=== PATIENT | female | born 1945 | race African-American/Black ===

== ENCOUNTER 2024-12-05 12:45 | Outpatient (AMB) | payer OTHER, SELFPAY ==
--- NOTE | 2024-12-05 12:51 | A.OFFVIS_ITS ---
Intake Visit Reasons: 3 Months Accompanied by: Spouse Allergies fluoxetine (From [employer]) Allergy (Unknown, Verified 12/05/24 12:58) Unknown Medication List - Last Reconciled 12/05/24 by Shruthi Vivar CNP amlodipine 5 mg PO DAILY bupropion HCl (smoking deter) 150 mg PO BID carbidopa-levodopa 25-100 mg 1 tab PO .five times a day lisinopril 10 mg PO DAILY losartan 25 mg PO DAILY lovastatin 20 mg PO BEDTIME HPI Comments Details: She was doing okay. She was taking carbidopa-levodopa 25-100mg five times a day at 9am, 12pm, 3pm, 6pm, and 9pm. Tremor to R hand was a bit better, but still there. It was worse if she was nervous. Occasionally, she has to hold cup steady with two hands, but not as often. No difficulty swallowing. Moving a bit slower, some trouble turning in bed. Occasional lightheadedness. Using cane when outside home, no falls. Sleep was up and down, wakes a few times during the night to use the bathroom. Mood was okay. Hx of intermittent tremors in hands at rest, right slightly worse than left, since spring 2020. Does not interfere with ability to eat, but hard for her to write. Also feels lightheaded, dizzy at times, and feels unsteady, so that she feels more secure with cane. Voice is soft and tends to drool a little on the pillow. She is a little bit more stooped. Trouble turning in bed, takes longer to get out of bed and out of car. Does not shuffle or fall. No hx of head trauma. Does not feel depressed. No nightmares. No memory or cognitive problems. [facility] Medical History (Updated 12/05/24 @ 12:54 by Shruthi Vivar CNP) Hypertension Hyperlipemia Parkinsons disease Review of Systems Const Denies chills, Denies daytime sleepiness, Denies difficulty sleeping, Denies fatigue, Denies fever(s), Denies frequent falls, Denies headache(s), Denies increased appetite, Denies poor appetite, Denies snoring, Denies weakness, Denies weight gain and Denies weight loss Eyes Denies loss of vision ENT Denies vertigo, Reports dizziness, Denies headache(s) and Denies neck pain Card Denies chest pain at rest, Denies chest pain with activity, Denies syncope, Denies leg edema, Denies palpitations, Denies dyspnea and Denies dyspnea on exertion Resp Denies cough, Denies dyspnea, Denies dyspnea on exertion and Denies snoring GI Denies abdominal pain, Denies constipation, Denies heartburn, Denies diarrhea and Denies nausea Denies urinary frequency, Denies urinary incontinence and Denies urinary urgency Musc Denies abnormal gait, Denies back pain, Denies myalgias, Denies arthralgias, Denies neck pain, Denies numbness and Denies tingling Neuro Denies abnormal gait, Denies vertigo, Reports dizziness, Denies syncope, Denies frequent falls, Denies headache(s), Denies lack of coordination, Denies loss of vision, Denies memory loss, Denies numbness, Denies Other visual disturbances, Denies restless legs, Denies seizure-like activity, Denies tingling, Denies paresthesias, Reports tremor(s) and Denies weakness Psych Denies anxiety, Denies depression, Denies auditory hallucinations, Denies memory loss and Denies visual hallucinations Endo Denies fatigue and Denies palpitations Physical Exam Const Other: General Appearance:? normal, in no acute distress. Heart:? S1, S2 normal, no murmurs. Lungs:? clear anteriorly and posteriorly. Musculoskeletal:? normal. Extremities:? no edema. Psych:? alert, oriented, cognitive function intact, cooperative with exam. Neuro Other: Abnormal Neurological Findings:?Mild generalized bradykinesia with mask facies, stooped posture. Reduced arm swing on walking with cane. Minimal intermittent resting tremors of 4-6 Hz in both upper extremities R > L. Mildly increased tone in both upper extremities with cogwheeling. Mental Status: alert and oriented X 3. Normal attention, orientation, memory, and affect. Cranial Nerves: Pupils are equal, round, and reactive to light. External ocular muscles are intact. Visual woo are full, no ptosis. Face is symmetrical, no facial weakness or droop. Facial sensations are normal. Tongue protrudes in midline. Palate elevates symmetrically. Shoulder shrugging is normal Motor Examination: Normal muscle tone, bulk and strength. No atrophy or fasciculations. No drift of the extended upper extremities. DTR 2+. Plantars are flexor. Sensory Exam: Normal light touch, temperature, pinprick, vibration, and joint- position sensations. Rhomberg sign is absent. Coordination: No ataxia. No titubation. Gait Exam: Stooped posture, reduced arm swing with cane. Cerebellar Signs: [id number] with tremor. Extrapyramidal System: As above. Speech: Normal. Assessment & Plan Assessment & Plan (1) Parkinsons disease: Code(s): G20.A1 - Parkinson's disease without dyskinesia, without mention of fluctuations Category: Medical Qualifiers: Dyskinesia presence: without dyskinesia Fluctuating manifestations: without fluctuating manifestations Qualified Code(s): G20.A1 - Parkinson's disease without dyskinesia, without mention of fluctuations Plan: Continue carbidopa-levodopa 25-100mg 1 tablet five times a day. Coding Level of Care Code Est Pt Level 4 (52315) Diagnoses Parkinson's disease without dyskinesia or fluctuating manifestations G20.A1 Dyskinesia presence: without dyskinesia Fluctuating manifestations: without fluctuating manifestations
--- OUTSIDE RECORDS SUMMARY | 2024-12-05 13:57 | XMS_ITS ---
[facility] Name [facility] Unknown History of Medication Use Medication Directions Dispensed Refills Start Date End Date Stat us polyethylene glycol (PEG) 17 gram/dose oral powder Take 17 g by mouth daily. active Allergies Allergen Reaction Severity Comment Documented Date Source Statu s FLUOXETINE HCL Other Reactio n(s): OTHER,Dosnt remember 03/25/2005 [facility] active Problems Problem Status Onset Date Problem Type Date of Resolution Source Parkinson disease active 2020-11-12 ProblemAct [facility] Hypertension active 2008-03-06 ProblemAct [facility] Osteopenia active 2020-06-19 ProblemAct [facility] Osteoarthrosis, hand active 2005-03-25 ProblemAct [facility] Bronchiectasis without complication active 2019-01-24 ProblemAct [facility] Depression active 2008-10-13 ProblemAct [facility] Palpitations active 2020-09-17 ProblemAct [facility] Periumbilical abdominal pain active 2018-11-14 ProblemAct [facility] Sarcoidosis of lung active 2005-03-25 ProblemAct [facility] Lightheadedness active 2020-09-17 [address] [facility] Hyperlipidemia active 2005-04-02 ProblemAct [facility] Rheumatoid factor positive active 2022-08-17 ProblemAct [facility] Constipation active 2018-11-14 ProblemAct [facility] Carotid artery stenosis active 2014-12-29 ProblemAct [facility] Chronic superficial gastritis without bleeding active 2018-11-14 ProblemAct [facility] Other specified nutritional anemias active 2005-03-25 ProblemAct [facility] Encounter for screening mammogram for breast cancer active EncounterDiagnosisAct C [facility] Weight loss active 2018-11-14 ProblemAct [facility] Immunizations Vaccine Date Source Lot Number Status Influenza Quadravalent, 0.5m l (Fluzone High-dose) 65yo and older 12/27/2023 [facility] comple shannen Influenza trivalent, 0.5mL ( Fluad) 65yo and older 12/27/2023 [facility] [id number] completed Influenza trivalent, 0.5mL ( Fluzone High-dose) 65yo and older 02/17/2023 [facility] [id number] comple shannen Influenza trivalent, 0.5mL ( Fluzone High-dose) 65yo and older 02/02/2022 [facility] [id number] comple shannen Pfizer (ages 12 & older) Biv alent, COVID-19 01/22/2022 [facility] [id number] completed Influenza trivalent, 0.5mL ( Fluzone High-dose) 65yo and older 02/17/2021 [facility] [id number] comple shannen Td Tetanus diptheria (Tdvax) 7yo and older 07/16/2018 [facility] [id number] completed Influenza Quadravalent, MDCK , 0.5ml, preservative free (Flucelvax) 6mo and older 03/05/2018 [facility] [id number] completed Influenza Quadravalent, MDCK , 0.5ml, with preservative (Flucelvax) 6mo and older 01/15/2017 [facility] [id number] completed Influenza trivalent, with pr eservative (Fluzone; Afluria) 6mo and older 05/09/2016 [facility] [id number] completed Influenza trivalent, with pr eservative (Fluzone; Afluria) 6mo and older 03/11/2015 [facility] [id number] completed Pneumococcal conjugate 13 va lent (Prevnar 13, PCV13) 2mo and older 10/30/2014 [facility] [id number] complet ed Influenza trivalent, with pr eservative (Fluzone; Afluria) 6mo and older 01/29/2013 [facility] [id number] completed Influenza trivalent, with pr eservative (Fluzone; Afluria) 6mo and older 02/14/2012 [facility] [id number] completed Influenza trivalent, with pr eservative (Fluzone; Afluria) 6mo and older 02/08/2011 [id number] completed Influenza trivalent, with pr eservative (Fluzone; Afluria) 6mo and older 02/05/2010 [facility] [id number] completed Influenza trivalent, with pr eservative (Fluzone; Afluria) 6mo and older 04/02/2009 [facility] [id number] completed Influenza trivalent, with pr eservative (Fluzone; Afluria) 6mo and older 01/24/2008 [facility] [id number] completed Pneumococcal polysaccharide 23 valent (Pneumovax 23) 2yo and older 01/24/2008 [facility] [id number] com pleted Tdap Tetanus diptheria acell ular pertussis (Boostrix; Adacel) 7yo and older 06/04/2007 [facility] [id number] completed Hepatitis B ([id number] , Recombivax HB-Adult) 19yo and older 07/09/2003 [facility] ed Hepatitis B ([id number]-Z-[id number] , Recombivax HB-Adult) 19yo and older 01/22/2003 [facility] complet ed Td Tetanus diptheria (Tdvax) 7yo and older 04/03/1996 [facility] completed Care Team Organization Name Specialty Phone Email Start Date End Da te [facility] 08/08/2022 [facility] Termed, [facility] 02/08/202211/01
--- OUTSIDE RECORDS SUMMARY | 2024-12-05 13:57 | XMS_ITS | Clinical Summary ---
Author Organization [facility] [address] [place] [address] [place] [phone] Phone Care Team Providers Care Rv Service Technician Name Role Phone Kenny Mcqueen Primary Care Provider [phone] Allergies Active Allergy Reactions Criticality Noted Date Comments Fluoxetine Hcl 03/25/2005 Other Reaction(s): OTHER Dosnt remember Medications polyethylene glycol (PEG) 17 gram/dose oral powder Take 17 g by mouth daily. Active carbidopa-levod opa (SINEMET) 25-100 mg per tablet Take 1 Tablet by mouth 4 times daily. 1 Active albuterol HFA (PROAIR HFA ; PROVENTIL HFA ; VENTOLIN HFA) 90 mcg/actuation inhaler Inhale 2 puffs by mouth every 4 (four) hours if needed for wheezing or shortness of breath. 4 Active buPROPion SR (WELLBUTRIN SR) 150 mg 12 hr tablet Take 1 tablet (150 mg total) by mouth 1 (one) time each day. 4 Active lovastatin (MEVACOR) 20 mg tablet TAKE 1 TABLET BY MOUTH EVERYDAY AT BEDTIME 90 tablet 1 5 Active losartan (Cozaar) 50 mg tablet Take 1 tablet (50 mg total) by mouth 1 (one) time each day. 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 Monitor did not reveal any concerning heart rhythm problems. She denies any ongong issues with symptomatic palpitations. No changes today. Continue to monitor. Lightheadedness 09/17/2020 Osteopenia 06/19/2020 Bronchiectasis without compl ication ([facility] V24, [facility] V28) 01/24/2019 Weight loss 11/14/2018 Overview (01/11/2024): Last Assessment & Plan: Patient reports that she has had quite a bit of weight loss recently. We discussed ways for her to increase her daily caloric intake. I have encouraged her to add supplements such as Ensure and to increase protein with her meals. I have also encouraged her to reach out to her primary care provider to further discuss her weight loss. Periumbilical abdominal pain 11/14/2018 Constipation 11/14/2018 Chronic superficial gastritis without bleeding 0 11/14/2018 Carotid artery stenosis 12/29/2014 Overview (01/11/2024): Bilateral carotid arterial system atherosclerosis, 50-69% of stenosis in the right internal carotid artery based on velocity measurements. Under 50% stenosis in the left internal carotid artery. Last Assessment & Plan: Patient had a carotid duplex completed 01/2021 which showed less than 50% stenosis in the bilateral internal carotid arteries. She continues on statin. Depression 10/13/2008 Hypertension 03/06/2008 Overview (01/11/2024): Last Assessment & Plan: Patient's blood pressure is well controlled and she is not orthostatic. We once again discussed using caution when arising from a seated position and maintaining good hydration. Patient is not on any antihypertensive medications. Assessment & Plan (09/30/2024 5:04 PM EDT): Blood pressure on my recheck was 144/74. She denies any side effects with losartan 25 mg daily. Will increase losartan to 50 mg daily. Patient plans on doing blood work today. Since stopping the amlodipine, there has been some improvement with the ankle swelling. Continue elevating legs. Will stay off of amlodipine for now. Chest x- ray was unremarkable. Hyperlipidemia 04/02/2005 Overview (01/11/2024): Last Assessment & Plan: Well controlled on present medical therapies. No changes today. Sarcoidosis of lung (CMS/HCC V24) 03/25/2005 Other specified nutritional anemias 03/25/2005 Overview (01/11/2024): IMO update Osteoarthrosis, hand 03/25/2005 Overview (01/11/2024): IMO update Encounters Date Type Department Care Team Description 11/22/2024 12:15 PM EDT - 11/22/2024 11:59 PM EDT Hospital Encounter Radiology Department - [address] [phone] Bilateral carotid artery stenosis Discharge Disposition: Home or Self Care 11/01/2024 1:15 PM EDT Office Visit Adult Medicine [address] [phone] Shonda Mcconnell PA Primary hypertension (Primary Dx); Stage 3a chronic kidney disease (CMS/HCC V24, CMS/HCC V28); Pure hypercholesterolemia; Anemia, unspecified type; Medical orders for life-sustaining treatment (MOLST) form in chart 09/30/2024 2:30 PM EDT Office Visit [address] [phone] Shonda Mcconnell PA Encounter for subsequent annual wellness visit (AWV) in Medicare patient (Primary Dx); Primary hypertension; Elevated blood pressure reading from Last 3 Months Immunizations Name Administration Dates Next Due Hepatitis B (Vndivad-O-Wdldb , Recombivax HB-Adult) 19yo and older 07/09/2003,01/22/2003 Influenza Quadravalent, 0.5m l (Fluzone High-dose) 65yo and older 12/27/2023 Influenza Quadravalent, MDCK , 0.5ml, preservative free (Flucelvax) 6mo and older 03/05/2018 Influenza Quadravalent, MDCK , 0.5ml, with preservative (Flucelvax) 6mo and older 01/15/2017 Influenza Quadravalent, la mbinant, 0.5ml, preservative free (Flublok) 18yo and older 01/01/2020 Influenza trivalent, 0.5mL ( Fluad) 65yo and older 12/27/2023,01/08/2019 Influenza trivalent, 0.5mL ( Fluzone High-dose) 65yo and older 02/17/2023,02/02/2022,02/17/2021 Influenza trivalent, with pr eservative (Fluzone; Afluria) 6mo and older 05/09/2016,03/11/2015,01/29/2013,02/13,02/08/2011,02/05/2010,04/02/2009 ,01/24/2008 Pfizer (ages 12 & older) Biv alent, COVID-19 01/22/2022 Pneumococcal conjugate 13 va lent (Prevnar 13, PCV13) 2mo and older 10/30/2014 Pneumococcal polysaccharide 23 valent (Pneumovax 23) 2yo and older 01/24/2008 Td Tetanus diptheria (Tdvax) 7yo and older 07/16/2018,04/03/1996 Tdap Tetanus diptheria acell ular pertussis (Boostrix; Adacel) 7yo and older 06/04/2007 Surgical History Surgery Date Site/Laterality Comments OTHER SURGICAL HISTORY 02/10/2005 PROCEDURE: PAP SMEAR (2 SLIDES) OTHER SURGICAL HISTORY 08/07/2004 PROCEDURE: MAMMOGRAM TUBAL LIGATION PROCEDURE: HISTORICAL TUBAL LIGATION HYSTERECTOMY 2007 PROCEDURE: HISTORICAL TOTAL HYSTERECTOMY WITH BSO; COMMENT: also had gi proceedure colon partial resect with reanasotomisis ESOPHAGOGASTRODUODENOSCOPY 06/12/2008 PROCEDURE: IL ESOPHAGOGASTRODUODENOSCOPY TRANSORAL DIAGNOSTIC; COMMENT: normal OTHER SURGICAL HISTORY 1997 PROCEDURE: IL SIGMOIDOSCOPY FLX NDSC US XM COLONOSCOPY 02/2006 PROCEDURE: HISTORICAL COLONOSCOPY; COMMENT: polyps (hyperplastic) COLONOSCOPY 06/15/2011 PROCEDURE: IL COLONOSCOPY STOMA DX INCLUDING COLLJ SPEC SPX; COMMENT: hemorrhoids; repeat in 5 years OTHER SURGICAL HISTORY 01/08/2024 PROCEDURE: IL CMBND ANTERPOST COLPORRAPHY W/CYSTO; COMMENT: dr. maguire - cystocele, rectocele Medical History Medical History Date Comments Depressive disorder, not els ewhere classified DX:Depressive disorder, not elsewhere classified Osteoarthrosis, unspecified whether generalized or localized, hand DX:Osteoarthrosis, unsp ecified whether generalized or localized, hand Sarcoidosis DX:Sarcoidosis; COMMENT: pulmonary Anemia associated with other specified nutritional deficiency DX:Anemia associated with other specified nutritional deficiency Personal history of colonic polyps 04/17/2006 DX:Personal history of colonic polyps Mixed hyperlipidemia 04/02/2005 DX:Mixed hy perlipidemia Depression 10/13/2008 DX:Depression Hypertension 03/06/2008 DX:Hypertension Hepatic cyst DX:Hepatic cyst Renal cyst DX:Renal cyst Parkinson disease (CMS/HCC V 24, CMS/HCC V28) 11/12/2020 DX:Parkinson disease (HCC); COMMENT: Dr Camara Sarcoidosis of lung (CMS/HCC V24) 03/25/2005 DX:Sarcoidosis of lung (HCC) Hyperlipidemia 04/02/2005 DX:Hyperlipidemi a Family History Medical History Relation Name Comments Stroke Father Diabetes Mother Breast cancer Neg Hx Cervical cancer Neg Hx Colon cancer Neg Hx Ovarian cancer Neg Hx Relation Name Status Comments Father (Age 87) ?PMH Mother (Age 94) Heart con dition DM, HTN Sister 1 Alive ?healthy Sister 2 RA Sister 3 Alive Social History Tobacco Use Types Packs/Day Years Used Date Smoking Tobacco: Never Smokeless Tobacco: Never Tobacco Cessation:Counseling Given: Not Answered Alcohol Use Standard Drinks/Week Comments No 0 (1 standard drink = 0.6 oz pur e alcohol) Housing Instability Answer Date Recorde d Are you worried that in the next 2 months you may not have stable housing? No 09/30/2024 Food Access & Nutrition Answer Date Rec orded Do you have access to a vari ety of food including fruits and vegetables? Yes 09/30/2024 Access to Healthcare Answer Date Record ed Within the last 3 months, ho w many times did you visit the emergency department for your medical care? 0 08/30/2024 Health Literacy Answer Date Recorded How often do you need to hav e someone help you when you read instructions, pamphlets, or other written material from your doctor or pharmacy? Never 09/30/2024 Caregiver: How often do you need to have someone help you when you read instructions, pamphlets, or other written material from your doctor or pharmacy? Not on file 09/30/2024 Financial Risk Answer Date Recorded How hard is it for you to pa y for the very basics like food, housing, medical care, and air conditioning / heating? Not very hard 09/30/2024 Transportation Answer Date Recorded Has the lack of transportati on kept you from meetings, work, or from getting things needed for daily living? No Has the lack of transportati on kept you from medical appointments or from getting medications? No 09/30/2024 Social Isolation Answer Date Recorded How often do you feel lonely or isolated from th ose around you? Never 09/30/2024 Food Risk Answer Date Recorded Within the past 12 months we worried whether our food would run out before we got money to buy more. Never true 09/30/2024 Within the past 12 months th e food we bought just didn't last and we didn't have money to get more. Never true 09/30/2024 Dependent Care Answer Date Recorded Do you need help finding or paying for care for your loved ones. For example, child support specialist or elderly care for an older adult? No 09/30/2024 Education Answer Date Recorded Do you think completing more education or training, like finishing a GED, going to college, or learning a trade, would be helpful for you? No 09/30/2024 Employment and Income Answer Date Recor ded During the last four weeks, have you been actively looking for work? No 09/30/2024 Living Situation Answer Date Recorded What is your living situation? 0 09/30/2024 Comments No Sex and Gender Information Value Date Recorded Sex Assigned at Female 02/21/2024 2:06 PM EST Legal Sex Female 11:01 PM EST Gender Identity Female 02/21/2024 2:06 PM EST Sexual Orientation Straight 02/21/2024 2: 06 PM EST Obstetrics History Para Term AB IAB SAB Ectopic Multiple Livin g Live Births 1 1 1 Date Outcome GA Total Labor Labor/2nd/3rd Weight Sex Type Anes PTL Reanna A1 A5 Name Clin Term Last Filed Vital Signs Vital Sign Reading Time Taken Comments Blood Pressure 133/54 11/01/2024 1:30 PM EDT Pulse 84 11/01/2024 1:26 PM EDT Temperature 36.6 C (97.9 F) 11/01/2024 1:26 PM EDT Respiratory Rate 15 11/01/2024 1:26 PM EDT Oxygen Saturation 98% 11/01/2024 1:26 PM EDT Inhaled Oxygen Concentration - - Weight 53.5 kg (118 lb) 11/01/2024 1:26 PM EDT Height 162.6 cm (5' 4 ) 11/01/2024 1:26 PM EDT Body Mass Index 20.25 11/01/2024 1:26 PM EDT Plan of Treatment Upcoming Encounters Date Type Department Care Team (Late st Contact Info) Description 12/26/2024 11:30 AM EDT Office Visit Pulmonolgy - [place] [address] [facility] [address] [place] [phone] Shelby Neves MD [address] [place] [address] 03/03/2025 11:00 AM EST Office Visit Adult Medicine [address] [phone] Kenny Mcqueen PA [address] [place] [address] Health Maintenance Due Date Last Done Comments Zoster Vaccines (1 of 2) 1993 Hepatitis B Vaccines (3 of 3 - 19+ 3-dose series) 09/03/2003 07/09/2003, 01/22/2003 RSV Immunization Adult Patients (1 - 1-dose 75+ series) 2018 COVID-19 Vaccine ( season) 2024 01/22/2022, 08/19/2021, 03/16/2021, Additional history exists Influenza Vaccine (#1) 2024 , 12/27/2023, 02/17/2023, Additional history exists Falls Risk Assessment 09/30/2025 09/30/2024, 025 Hypertension/CHF/CAD Annual BMP Blood Test 09/30/2025 09/30/2024, 11/15/2023, 11/15/2023, Additional history exists Medicare Annual Wellness Visit 09/30/2025 09/30/2024 Social Influencers of Health Screening 09/30/2025 09/30/2024 Breast Cancer Screening 02/23/2026 02/24/20 24, 01/28/2023, 01/22/2022, Additional history exists DTaP,Tdap,and Td Vaccines (4 - Td or Tdap) 07/16/2028 07/16/2018, 06/04/2007, 04/03/1996 Cholesterol Screening (Lipid Panel) 09/30/2029 09/30/2024, 11/15/2023, 11/15/2023 Osteoporosis Screening (Bone Density Screening) 06/17/2034 06/17/2024, 06/18/2020 Pneumococcal Vaccine: 50+ Years Completed 10/30/2014, 01/24/2008 Depression Screening Completed 09/30/2024 HIB Vaccines Aged Out No longer eligi ble based on patient's age to complete this topic HPV Vaccines Aged Out No longer eligi ble based on patient's age to complete this topic Hepatitis A Vaccines Aged Out No long er eligible based on patient's age to complete this topic IPV Vaccines Aged Out No longer eligi ble based on patient's age to complete this topic MMR Vaccines Aged Out No longer eligi ble based on patient's age to complete this topic Meningococcal ACWY Vaccine Aged Out N o longer eligible based on patient's age to complete this topic Meningococcal B Vaccine Aged Out No l onger eligible based on patient's age to complete this topic RSV Immunization Patients Under 20 months Aged Out No longer eligible based on patient's age to complete this topic Varicella Vaccines Aged Out No longer eligible based on patient's age to complete this topic Procedures Procedure Name Priority Date/Time Associated Diagnosis Comments VAS US DUPLEX CAROTID BILATERAL Routine 11/22/2024 1:23 PM EDT Bilateral carotid artery stenosis CBC WITH AUTO DIFFERENTIAL Routine 09/30/2024 3:41 PM EDT Sarcoidosis of lung (CMS/HCC V24) CBC AND DIFFERENTIAL Routine 09/30/2024 3:41 PM EDT Sarcoidosis of lung (CMS/HCC V24) COMPREHENSIVE METABOLIC PANEL Routine 09/30/2024 3:41 PM EDT Primary hypertension LIPID PANEL WITH REFLEX TO DIRECT LDL Routine 09/30/2024 3:41 PM EDT Pure hypercholesterolemia B-TYPE NATRIURETIC PEPTIDE Routine 09/30/2024 3:41 PM EDT Swelling of both ankles BD BONE DENSITY DXA AXIAL SKELETON Routine 06/17/2024 1:44 PM EDT Sarcoidosis, unspecified MG MAMMO DIGITAL SCREENING W ARNULFO BILAT Routine 02/24/2024 12:10 PM EST Encounter for screening mammogram for breast cancer from Last 3 Months or Most Recently Relevant to Health Maintenance Results * Vascular US duplex carotid bilateral (11/22/2024 1:23 PM EDT) Anatomical Region Laterality Modality Vascular, Abdomen Ultrasound 11/22/2024 3:44 PM EDT Impressions 11/22/2024 3:51 PM EDT Stable atherosclerotic changes with some less than 50% stenosis in the internal carotid arteries. No significant interval change. Analysis is based on grayscale and velocity measurements which have been correlated with the NASCET criteria for measuring internal carotid artery stenosis. PQRS: 3100F. -------- FINAL REPORT -------- Dictated By: Nicolette Garcia Dictated Date: 11/22/2024 15:44 ET Assigned Physician: Nicolette Garcia Reviewed and Electronically Signed By: Nicolette Garcia Signed Date: 11/22/2024 15:51 ET Workstation ID: [id number] Transcribed By: Self Edit Transcribed Date: 11/22/2024 15:44 ET Narrative 11/22/2024 3:51 PM EDT VAS US DUPLEX CAROTID BILATERAL BILATERAL CAROTID ARTERIAL ULTRASOUND Clinical History: Carotid artery stenosis. Comparison: Prior examination from 11/23/2023. Technique and Findings: Garcia scale, color and pulsed Doppler imaging were utilized. Echogenic nonshadowing plaques are seen in the bilateral internal, external, carotid arteries, with no significant stenoses on visual inspection bilaterally. Both carotid systems demonstrate normal waveforms with brisk systolic upstrokes. Measured peak systolic velocities are as follows: Right ICA: 116 cm/s. Right ICA/CCA ratio: 1.5. Left ICA: 130 cm/s. Left ICA/CCA ratio: 1.1. Both vertebral arteries demonstrate normal antegrade flow. Procedure Note Nicolette Garcia MD - 11/22/2024 VAS US DUPLEX CAROTID BILATERAL BILATERAL CAROTID ARTERIAL ULTRASOUND Clinical History: Carotid artery stenosis. Comparison: Prior examination from 11/23/2023. Technique and Findings: Garcia scale, color and pulsed Doppler imaging wereutilized. Echogenic nonshadowing plaques are seen in the bilateral internal,external, carotid arteries, with no significant stenoses on visualinspection bilaterally. Both carotid systems demonstrate normal waveformswith brisk systolic upstrokes. Measured peak systolic velocities are as follows: Right ICA: 116 cm/s. Right ICA/CCA ratio: 1.5. Left ICA: 130 cm/s. Left ICA/CCA ratio: 1.1. Both vertebral arteries demonstrate normal antegrade flow. IMPRESSION: Stable atherosclerotic changes with some less than 50% stenosis in theinternal carotid arteries. No significant interval change. Analysis is based on grayscale and velocity measurements which have beencorrelated with the NASCET criteria for measuring internal carotid arterystenosis. PQRS: 3100F. -------- FINAL REPORT -------- Dictated By: Rokhlenko, Nicolette Dictated Date: 11/22/2024 15:44 ET Assigned Physician: Nicolette Garcia Reviewed and Electronically Signed By: Nicolette Garcia Signed Date: 11/22/2024 15:51 ET Workstation ID: [id number] Transcribed By: Self Edit Transcribed Date: 11/22/2024 15:44 ET us Shonda GARLAND CV VASCULAR PROCEDURES Final Res ult * Lipid panel with reflex to direct LDL (09/30/2024 3:41 PM EDT) Cholesterol 192 0 - 200 mg/dL LAB CHEMISTRY METHOD 09/30/2024 7:18 PM EDT [facility] Triglycerides 61 0 - 150 mg/dL LAB CHEMISTRY METHOD 09/30/2024 7:18 PM EDT [facility] HDL 88 >=40 mg/dL LAB CHEMISTRY METHOD 09/30/2024 7:18 PM EDT [facility] LDL Calculated 92 0 - 100 mg/dL LAB CHEMISTRY METHOD 09/30/2024 7:18 PM EDT [facility] VLDL Cholesterol Jeromy 12.2 mg/dL LAB CHEMISTRY METHOD 09/30/2024 7:18 PM EDT [facility] Non HDL Chol. (LDL+VLDL) 104 <145 mg/dL LAB CHEMISTRY METHOD 09/30/2024 7:18 PM EDT [facility] Chol/HDL Ratio 2.2 0.0 - 4.4 LAB CHEMISTRY METHOD 09/30/2024 7:18 PM EDT [facility] Blood Venous blood specimen / Unknown Venipuncture / Unknown 09/30/2024 3:41 PM EDT 09/30/2024 3:41 PM EDT us Shonda GARLAND LAB BLOOD ORDERABLES Final Resul t [facility] [address] [place] [address], [place] [phone] * (ABNORMAL) CBC auto differential (09/30/2024 3:41 PM EDT) [facility] Signature WBC 4.4(L) 4.8 - 10.8 K/mcL LAB HEMETOLOGY METHOD 09/30/2024 6[facility] RBC 3.40(L) 3.80 - 4.80 M/mcL LAB HEMETOLOGY METHOD 09/30/2024 6:41 PM EDT [facility] Hemoglobin 10.5(L) 11.5 - 16.0 g/dL LAB HEMETOLOGY METHOD 09/30/2024 6:41 PM [facility] Hematocrit 33.1(L) 35.0 - 47.0 % LAB HEMETOLOGY METHOD 09/30/2024 6:41 PM [facility] MCV 96.2 79.0 - 98.0 FL LAB HEMETOLOGY METHOD 09/30/2024 6:41 [facility] MCH 30.5 27.0 - 32.0 pcg LAB HEMETOLOGY METHOD 09/30/2024 6:41 PM [facility] MCHC 31.7(L) 32.0 - 37.0 g/dL LAB HEMETOLOGY METHOD 09/30/2024 6:41 PM [facility] RDW 14.4 11.0 - 15.0 % LAB HEMETOLOGY METHOD 09/30/2024 6:41 PM [facility] Platelets 221 130 - 400 K/mcL LAB HEMETOLOGY METHOD 09/30/2024 6:41 PM [facility] MPV 11.5(H) 7.0 - 11.0 FL LAB HEMETOLOGY METHOD 09/30/2024 6:41 PM [facility] NRBC 0.0 <1.0 % LAB HEMETOLOGY METHOD 09/30/2024 6:41 [facility] NRBC Absolute 0.00 <0.10 K/mcL LAB HEMETOLOGY METHOD 09/30/2024 6:41 PM EDT [facility] Neutrophils Relative 50.9 % LAB HEMETOLOGY METHOD 09/30/2024 6:41 [facility] Lymphocytes Relative 34.2 % LAB HEMETOLOGY METHOD 09/30/2024 6:41 PM EDT [facility] Monocytes Relative 12.6 % LAB HEMETOLOGY METHOD 09/30/2024 6:41 PM EDT [facility] Eosinophils Relative 1.6 % LAB HEMETOLOGY METHOD 09/30/2024 6:41 [facility] Basophils Relative 0.5 % LAB HEMETOLOGY METHOD 09/30/2024 6:41 PM [facility] Immature Granulocytes Relative 0.2 % LAB HEMETOLOGY METHOD 09/30/2024 6:41 PM [facility] Neutrophils Absolute 2.22 1.50 - 7.00 K/mcL LAB HEMETOLOGY METHOD 09/30/2024 6:41 PM EDT [facility] Lymphocytes Absolute 1.49 1.00 - 5.00 K/mcL LAB HEMETOLOGY METHOD 09/30/2024 6:41 PM [facility] Monocytes Absolute 0.55 0.20 - 1.00 K/mcL LAB HEMETOLOGY METHOD 09/30/2024 6:41 PM EDT [facility] Eosinophils Absolute 0.07 0.00 - 0.50 K/mcL LAB HEMETOLOGY METHOD 09/30/2024 6:41 PM EDT [facility] Basophils Absolute 0.02 0.00 - 0.20 K/mcL LAB HEMETOLOGY METHOD 09/30/2024 6:41 PM [facility] Immature Granulocytes Absolute 0.01 0.00 - 0.03 K/mcL LAB HEMETOLOGY METHOD 09/30/2024 6:41 PM EDT [facility] Blood Venous blood specimen / Unknown Venipuncture / Unknown 09/30/2024 3:41 PM EDT 09/30/2024 3:41 PM EDT us Shonda Mcconnell PA LAB BLOOD ORDERABLES Final Resul t Performing Organization Address [facility]/ZIP Co de Phone Number [facility] [address] [place] [address], [place] [phone] * B-type natriuretic peptide (09/30/2024 3:41 PM EDT) BNP 59 <=100 pcg/mL LAB CHEMISTRY METHOD 09/30/2024 7:10 PM EDT [facility] Blood Venous blood specimen / Unknown Venipuncture / Unknown 09/30/2024 3:41 PM EDT 09/30/2024 3:41 PM EDT us Shonda Mcconnell PA LAB BLOOD ORDERABLES Final Resul t Performing Organization Address [facility] Co de Phone Number [facility] [address] [place] [address], [place] [phone] * (ABNORMAL) Comprehensive metabolic panel (09/30/2024 3:41 PM EDT) Sodium 136 133 - 145 mmol/L LAB CHEMISTRY METHOD 09/30/2024 7:11 PM EDT [facility] Potassium 4.2 3.5 - 5.5 mmol/L LAB CHEMISTRY METHOD 09/30/2024 7:11 PM EDT [facility] Chloride 103 96 - 110 mmol/L LAB CHEMISTRY METHOD 09/30/2024 7:11 PM EDT [facility] CO2 26 21 - 32 mmol/L LAB CHEMISTRY METHOD 09/30/2024 7:11 PM EDT [facility] Anion Gap 7 3 - 11 LAB CHEMISTRY METHOD 09/30/2024 7:11 PM [facility] Glucose 89 70 - 100 mg/dL LAB CHEMISTRY METHOD 09/30/2024 7:11 PM [facility] BUN 21 5 - 25 mg/dL LAB CHEMISTRY METHOD 09/30/2024 7:11 PM [facility] Creatinine 1.03 0.50 - 1.10 mg/dL LAB CHEMISTRY METHOD 09/30/2024 7:11 PM [facility] eGFR 55(L) >=60 mL/min/1. 73m2 LAB CHEMISTRY METHOD 09/30/2024 7:11 PM [facility] Comment:Calculation based on the Chronic Kidney Disease Epidemiology Collaboration (CKD-EPI) equation refit without adjustment for race. BUN/Creatinine Ratio 20.4 LAB CHEMISTRY METHOD 09/30/2024 7:11 PM [facility] Calcium 9.3 8.5 - 10.5 mg/dL LAB CHEMISTRY METHOD 09/30/2024 7:11 PM [facility] AST (SGOT) 20 10 - 42 unit/L LAB CHEMISTRY METHOD 09/30/2024 7:11 PM [facility] ALT (SGPT) 15 10 - 60 unit/L LAB CHEMISTRY METHOD 09/30/2024 7:11 PM [facility] Alkaline Phosphatase 105 42 - 121 unit/L LAB CHEMISTRY METHOD 09/30/2024 7:11 PM [facility] Total Protein 7.7 6.0 - 8.0 g/dL LAB CHEMISTRY METHOD 09/30/2024 7:11 PM [facility] Albumin 4.0 3.2 - 5.0 g/dL LAB CHEMISTRY METHOD 09/30/2024 7:11 PM [facility] Total Bilirubin 0.4 0.0 - 1.4 mg/dL LAB CHEMISTRY METHOD 09/30/2024 7:11 PM [facility] Blood Venous blood specimen / Unknown Venipuncture / Unknown 09/30/2024 3:41 PM EDT 09/30/2024 3:41 PM EDT us Shonda GARLAND LAB BLOOD ORDERABLES Final Resul t [facility] [address] [place] [address], * BD Bone Density DXA Axial Skeleton (06/17/2024 1:44 PM EDT) Anatomical Region Laterality Modality Wrist, Hip, L-spine Bone Densito metry 06/17/2024 5:29 PM EDT Impressions 06/17/2024 5:30 PM EDT Osteopenia by WHO criteria. This patient has a 5.1% risk of major osteoporotic fracture and a 1.3% risk of hip fracture over the next 10 years. (World Health Organization Fracture Risk Assessment) [facility] Department of Internal Medicine recommends using National Osteoporosis Foundation (NOF) guidelines in treatment decisions related to osteoporosis. NOF guidelines suggest considering treatment for postmenopausal women and men aged 50 or older presenting with the following: History of hip or vertebral fracture. T-score = -2.5 (DXA) at the femoral neck, total hip, or spine, after appropriate evaluation to exclude secondary causes. Low bone mass (T-score between -1.0 and -2.5 at the femoral neck or spine) AND a 10-year probability of a hip fracture = 3% OR a 10-year probability of a major osteoporosis-related fracture = 20% based on the [place]-adapted WHO algorithm Please note that all treatment decisions require clinical judgment and consideration of individual patient factors, including patient preferences, co-morbidities, previous drug use, risk factors not captured in the FRAX model (e.g., frailty, falls, vitamin D deficiency, increased bone turnover, interval significant decline in bone density) and possible under- or over-estimation of fracture risk by FRAX. Optional alternative screening schedule based on marah Slater., [facility] April 21, 2011 for patients with osteopenia (based on hip BMD T-score) is as follows: * advanced osteopenia (T scores -2.00 to -2.49), BMD testing every year * moderate osteopenia (T scores -1.50 to -1.99), BMD testing every 5 years mild osteopenia or normal BMD (T scores -1.50 and higher), BMD testing every 15 years -------- FINAL REPORT -------- Dictated By: Lacy Gregg Dictated Date: 06/17/2024 17:29 ET Assigned Physician: Lacy Gregg Reviewed and Electronically Signed By: Lacy Gregg Signed Date: 06/17/2024 17:30 ET Workstation ID: [id number] Transcribed By: Self Edit Transcribed Date: 06/17/2024 17:29 ET Narrative 06/17/2024 5:30 PM EDT BONE DENSITY SCAN (DEXA): FINDINGS: Lumbar Spine T-score is -0.4. (SD relative to 20-29 y/o adult) Z-score is 1.7. (SD relative to age matched peers) This is considered normal by WHO criteria. Left Hip T-score is -1.4. Z-score is 0.0. This is considered osteopenia by WHO criteria. Comparison exam(s): 06/18/2020. No statistically significant change in bone mineral density. Procedure Note Lacy Gregg MD - 06/17/2024 BONE DENSITY SCAN (DEXA): FINDINGS: Lumbar Spine T-score is -0.4. (SD relative to 20-29 y/o adult) Z-score is 1.7. (SD relative to age matched peers) This is considered normal by WHO criteria. Left Hip T-score is -1.4. Z-score is 0.0. This is considered osteopenia by WHO criteria. Comparison exam(s): 06/18/2020. No statistically significant change inbone mineral density. IMPRESSION: Osteopenia by WHO criteria. This patient has a 5.1% risk of majorosteoporotic fracture and a 1.3% risk of hip fracture over the next 10years. (World Health Organization Fracture Risk Assessment) [facility] Department of Internal Medicine recommendsusing National Osteoporosis Foundation (NOF) guidelines in treatmentdecisions related to osteoporosis. NOF guidelines suggest consideringtreatment for postmenopausal women and men aged 50 or older presentingwith the following: History of hip or vertebral fracture. T-score = -2.5 (DXA) at the femoral neck, total hip, or spine, afterappropriate evaluation to exclude secondary causes. Low bone mass (T-score between -1.0 and -2.5 at the femoral neck or spine)AND a 10-year probability of a hip fracture = 3% OR a 10-year probabilityof a major osteoporosis-related fracture = 20% based on the [place]-adapted WHOalgorithm Please note that all treatment decisions require clinical judgment andconsideration of individual patient factors, including patientpreferences, co-morbidities, previous drug use, risk factors not capturedin the FRAX model (e.g., frailty, falls, vitamin D deficiency, increasedbone turnover, interval significant decline in bone density) and possibleunder- or over-estimation of fracture risk by FRAX. Optional alternative screening schedule based on [facility] Slater., [facility] for patients with osteopenia (based on hip BMD T-score)is as follows: * advanced osteopenia (T scores -2.00 to -2.49), BMD testing every year * moderate osteopenia (T scores -1.50 to -1.99), BMD testing every 5years mild osteopenia or normal BMD (T scores -1.50 and higher), BMD testingevery 15 years -------- FINAL REPORT -------- Dictated By: Lacy Gregg Dictated Date: 06/17/2024 17:29 ET Assigned Physician: Lacy Gregg Reviewed and Electronically Signed By: Lacy Gregg Signed Date: 06/17/2024 17:30 ET Workstation ID: [id number] Transcribed By: Self Edit Transcribed Date: 06/17/2024 17:29 ET Kenny ROWE DXA PROCEDURES Final Result * MG Mammo Digital Screening w Arnulfo bilat (02/24/2024 12:10 PM EST) Anatomical Region Laterality Modality Breast Bilateral Mammography 02/26/2024 12:2 7 PM EST Impressions 02/26/2024 12:29 PM EST BILATERAL BREASTS: Negative, no evidence of malignancy. Normal interval follow- up is recommended in 12 months. BREAST DENSITY: D - The breasts are extremely dense which lowers the sensitivity of mammography. BI-RADS CATEGORY: 1 - NEGATIVE RECOMMENDATION: Screening bilateral mammogram is recommended in 1 year. Mammo Location: [facility], [address] [place] [address], [id number], . -------- FINAL REPORT -------- Dictated By: Slim Williamson Dictated Date: 02/26/2024 12:27 ET Assigned Physician: Slim Williamson Reviewed and Electronically Signed By: Slim Williamson Signed Date: 02/26/2024 12:29 ET Workstation ID: [id number] Transcribed By: Self Edit Transcribed Date: 02/26/2024 12:27 ET Narrative 02/26/2024 12:29 PM EST STUDY: Bilateral screening mammography with tomosynthesis and CAD TECHNIQUE: Bilateral full-field digital screening mammography is obtained and read in conjunction with computer-aided detection. Tomosynthesis as well as 2-D C view imaging were obtained. COMPARISON: Comparison made to multiple prior, most recent January 28, 2023, and most remote January 16, 2020. BILATERAL BREASTS: No significant masses, suspicious calcifications or other abnormalities are seen. Procedure Note Slim Williamson MD - 02/26/2024 STUDY: Bilateral screening mammography with tomosynthesis and CAD TECHNIQUE: Bilateral full-field digital screening mammography is obtainedand read in conjunction with computer-aided detection. Tomosynthesis aswell as 2-D C view imaging were obtained. COMPARISON: Comparison made to multiple prior, most recent January, and most remote January 16, 2020. BILATERAL BREASTS: No significant masses, suspicious calcifications orother abnormalities are seen. IMPRESSION: BILATERAL BREASTS: Negative, no evidence of malignancy. Normal intervalfollow-up is recommended in 12 months. BREAST DENSITY: D - The breasts are extremely dense which lowers thesensitivity of mammography. BI-RADS CATEGORY: 1 - NEGATIVE RECOMMENDATION: Screening bilateral mammogram is recommended in 1 year. Mammo Location: [facility], [address] [place] [address], [id number], . -------- FINAL REPORT -------- Dictated By: Slim Williamson Dictated Date: 02/26/2024 12:27 ET Assigned Physician: Slim Williamson Reviewed and Electronically Signed By: Slim Williamson Signed Date: 02/26/2024 12:29 ET Workstation ID: [id number] Transcribed By: Self Edit Transcribed Date: 02/26/2024 12:27 ET Kenny GARLAND IMG BI PROCEDURES Final R esult from Last 3 Months or Most Recently Relevant to Health Maintenance Insurance [employer] Advance Directives Documents on File Type Date Recorded Patient Web Production Designer Expl anation Advance Directives and Living Will 11/01/2024 1:59 PM Health Care Proxy Advance Directives and Living Will 11/01/2024 1:49 PM MOLST form 11/01/24 Care Teams Rv Service Technician Relationship Specialty Start Date End Date Kenny Mcqueen, DADA [address] [place] [id number] PCP - General Internal Medicine 02/21/24
== END 2024-12-05 13:13 | disposition home or self-care (01) ==
PROVIDERS: Visit Provider Registered Nurse
DX: G20.A1 Parkinson's disease without dyskinesia, without mention of fluctuations (principal)
CPT/HCPCS: 99214